=== PATIENT | female | born 1960 | race African-American/Black ===

== ENCOUNTER 2018-02-04 15:55 | Emergency (ER) | payer MEDICARE, OTHER ==
[~2018-02-04] VITALS: Ht 157.5 cm; Wt 80.8 kg
[~2018-02-04 15:55] MED LIST: LISI5TAB7 PO
[2018-02-04] MEDS ORDERED: METH4TAB6 PO (16:31)
[2018-02-04 16:48] LABS: BASOPHILS # (AUTO) 0.02 x10^3/uL (0-0.1); BASOPHILS % (AUTO) 0 % (0-1); EOSINOPHILS # (AUTO) 0.01 x10^3/uL (0-0.4); EOSINOPHILS % (AUTO) 0 % (1-7); LYMPHOCYTES % (AUTO) 25 % (22-44); MD NO; MEAN CORPUSCULAR HEMOGLOBIN 29.8 pg (27.0-34.8); MEAN CORPUSCULAR HGB CONC 33.6 g/dL (32.4-35.8); MEAN CORPUSCULAR VOLUME 88.7 fL (80-100); MEAN PLATELET VOLUME 8.3 fL (7.4-10.4); MONOCYTES # (AUTO) 0.17 x10^3/uL (0.2-0.8); MONOCYTES % (AUTO) 3 % (2-9); NEUTROPHILS % (AUTO) 72 % (42-75); PLATELET COUNT 246 x10^3/uL (130-400); RED BLOOD COUNT 4.81 x10^6/uL (3.82-5.3); RED CELL DISTRIBUTION WIDTH 14.6 % (9.6-15.2)
[2018-02-04 16:56] LABS: INTERNATIONAL NORMALIZED RATIO 1.03 (0.93-1.1); PROTHROMBIN TIME 10.6 Seconds (9.6-11.5)
[2018-02-04 16:59] LABS: ALBUMIN 4.1 g/dL (3.4-5.0); ANION GAP 6 mmol/L (5-15); CALCIUM 9.2 mg/dL (8.5-10.1); CHLORIDE 106 mmol/L (98-107)
[2018-02-04 17:02] LABS: MICROSCOPIC NOT IND
[2018-02-04 17:03] LABS: ALANINE AMINOTRANSFERASE 27 U/L (12-78); ALKALINE PHOSPHATASE 88 U/L (45-117); BILIRUBIN,TOTAL 0.6 mg/dL (0.2-1.0); CREATININE 1.03 mg/dL (0.55-1.02); TOTAL PROTEIN 8.6 g/dL (6.4-8.2)
[2018-02-04 17:05] LABS: CULTURE INDICATED? NO
[2018-02-04] MEDS ORDERED: OMNIPAQUE 350 MG/ML, 100ML BOTTLE ONE (18:09)
[2018-02-04 20:23] VITALS: BP 192/106
== END 2018-02-04 20:26 | disposition home or self-care (01) ==
LOC: ED 18:54
DX: K92.1 Melena (principal); I10 Essential (primary) hypertension; M54.9 Dorsalgia, unspecified; Z90.710 Acquired absence of both cervix and uterus
CPT/HCPCS: 36415; 74177; 80053; 81003; 85025; 85610; 99285; Q9967

== ENCOUNTER 2018-07-26 13:03 | Emergency (ER) | payer MEDICARE, OTHER ==
[~2018-07-26] VITALS: Ht 157.5 cm; Wt 81.5 kg
[~2018-07-26 13:03] MED LIST changes: +METH4TAB6 PO
[2018-07-26 13:47] LABS: BASOPHILS # (AUTO) 0.02 x10^3/uL (0-0.1); BASOPHILS % (AUTO) 0 % (0-1); EOSINOPHILS # (AUTO) 0.03 x10^3/uL (0-0.4); EOSINOPHILS % (AUTO) 1 % (1-7); LYMPHOCYTES # (AUTO) 2.48 x10^3/uL (1-3.4); LYMPHOCYTES % (AUTO) 35 % (22-44); MD NO; MEAN CORPUSCULAR HEMOGLOBIN 29.6 pg (27.0-34.8); MEAN CORPUSCULAR HGB CONC 33.4 g/dL (32.4-35.8); MEAN CORPUSCULAR VOLUME 88.8 fL (80-100); MEAN PLATELET VOLUME 8.2 fL (7.4-10.4); MONOCYTES # (AUTO) 0.45 x10^3/uL (0.2-0.8); MONOCYTES % (AUTO) 6 % (2-9); NEUTROPHILS # (AUTO) 4.21 x10^3/uL (1.8-6.8); NEUTROPHILS % (AUTO) 59 % (42-75); PLATELET COUNT 253 x10^3/uL (130-400); RED BLOOD COUNT 4.68 x10^6/uL (3.82-5.3); RED CELL DISTRIBUTION WIDTH 14.1 % (9.6-15.2)
[2018-07-26 13:53] LABS: ALANINE AMINOTRANSFERASE 27 U/L (12-78); ALBUMIN 3.8 g/dL (3.4-5.0); ANION GAP 3 mmol/L (5-15); CHLORIDE 108 mmol/L (98-107); CREATININE 1.06 mg/dL (0.55-1.02)
[2018-07-26 13:56] LABS: ALKALINE PHOSPHATASE 97 U/L (45-117); BILIRUBIN,TOTAL 0.4 mg/dL (0.2-1.0); TOTAL PROTEIN 8.4 g/dL (6.4-8.2)
[2018-07-26 14:16] LABS: MICROSCOPIC NOT IND
[2018-07-26 14:19] LABS: CULTURE INDICATED? YES
--- NOTE | 2018-07-26 14:27 | NUR ---
ambulatory to room 22 with belongings.
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
--- NOTE | 2018-07-26 16:18 | NUR ---
BP WAS NOTIFIED NO ORDER WAS RECEIVED
--- NOTE | 2018-07-26 17:16 | NUR ---
BP IS STILL UP MD WAS NOTIFIED
--- NOTE | 2018-07-26 18:15 | NUR ---
bp is still up md was notified no order was received yet pt is resting no other c/o
--- NOTE | 2018-07-26 18:21 | NUR ---
another med given clonidine
--- NOTE | 2018-07-26 18:22 | NUR ---
pt c/o rt side milad pain md was notified
--- NOTE | 2018-07-26 18:58 | NUR ---
Report from FLAVIO Rizzo.
[2018-07-26] MEDS ORDERED: hydrALAzine 20 MG/ML, 1ML IM ONE (19:00)
[2018-07-26 19:10] VITALS: BP 160/93
--- NOTE | 2018-07-26 19:11 | NUR ---
BP = 160/93 after clonidine. aware. states to hold hydralazine.
--- NOTE | 2018-07-26 20:11 | NUR ---
Patient/Caregiver given discharge instructions and they have confirmed that they understand the instructions. Patient ambulatory with steady gait.
== END 2018-07-26 20:13 | disposition home or self-care (01) ==
LOC: ED 15:29
DX: R10.84 Generalized abdominal pain (principal); I10 Essential (primary) hypertension; Z72.9 Problem related to lifestyle, unspecified; Z90.710 Acquired absence of both cervix and uterus
CPT/HCPCS: 36415; 80053; 81003; 83690; 85025; 99283

== ENCOUNTER 2018-08-04 09:00 | Emergency (ER) | payer MEDICARE, OTHER ==
[~2018-08-04] VITALS: Ht 157.5 cm; Wt 80.5 kg
[2018-08-04 09:22] VITALS: BP 174/104
--- NOTE | 2018-08-04 09:42 | NUR ---
pt to room from lobby, uptight on gurney awake & comforable, responds approp to staff, NAD, comfort measures provided, call light within reach.
[2018-08-04 09:57] LABS: BASOPHILS # (AUTO) 0.03 x10^3/uL (0-0.1); BASOPHILS % (AUTO) 0 % (0-1); EOSINOPHILS # (AUTO) 0.07 x10^3/uL (0-0.4); EOSINOPHILS % (AUTO) 1 % (1-7); LYMPHOCYTES % (AUTO) 23 % (22-44); MD NO; MEAN CORPUSCULAR HEMOGLOBIN 29.3 pg (27.0-34.8); MEAN CORPUSCULAR HGB CONC 33.7 g/dL (32.4-35.8); MEAN CORPUSCULAR VOLUME 87.1 fL (80-100); MEAN PLATELET VOLUME 8.3 fL (7.4-10.4); MONOCYTES # (AUTO) 0.58 x10^3/uL (0.2-0.8); MONOCYTES % (AUTO) 7 % (2-9); NEUTROPHILS % (AUTO) 69 % (42-75); PLATELET COUNT 289 x10^3/uL (130-400); RED BLOOD COUNT 4.73 x10^6/uL (3.82-5.3)
[2018-08-04 10:05] LABS: CULTURE INDICATED? YES; MICROSCOPIC INDICATED
--- NOTE | 2018-08-04 10:05 | NUR ---
pt upright on gurney awake with occas cough but comfortable, responds approp to staff, NAD, comfort measures provided, call light within reach.
[2018-08-04 10:09] LABS: CALCIUM 9.6 mg/dL (8.5-10.1); CREATININE 1.23 mg/dL (0.55-1.02)
[2018-08-04 10:20] LABS: ANION GAP 3 mmol/L (5-15); CHLORIDE 104 mmol/L (98-107)
--- NOTE | 2018-08-04 10:34 | NUR ---
Patient given discharge instructions and Rx, they have confirmed that they understand the instructions. Patient ambulatory with steady gait.
== END 2018-08-04 10:35 | disposition home or self-care (01) ==
LOC: ED 09:58
DX: J15.9 Unspecified bacterial pneumonia (principal); I11.9 Hypertensive heart disease without heart failure; Z90.710 Acquired absence of both cervix and uterus
CPT/HCPCS: 36415; 71046; 80048; 81001; 85025; 87086; 99284